=== PATIENT | male | born 1995 | race Caucasian/White ===

== ENCOUNTER → 2017-10-28 | Outpatient (CLI) | payer BC ==
--- NOTE | 2017-10-28 14:55 | Diagnostic Imaging Report ---
PROCEDURE: CT abdomen and pelvis without contrast. TECHNIQUE: Multiple contiguous axial images were obtained through the abdomen and pelvis without the use of intravenous contrast. INDICATION: Hematuria for three days. FINDINGS: The kidneys show no evidence of hydronephrosis. There are no renal calculi. Renal outlines are smooth. Ureters are not dilated. The bladder appears normal. Prostate is not enlarged. The lung bases are clear. The liver appears normal. The gallbladder and bile ducts are normal. The pancreas is normal. The spleen is normal. Adrenal glands are not enlarged. Bowel gas pattern appears normal throughout. There is normal stool and gas pattern. Appendix is normal. There is no free air or free fluid. IMPRESSION: Normal CT scan of the abdomen without contrast. Dictated by: Dictated on workstation # [id number]
== END ==
LOC: EDBD 11:15 → RAD 11:20
PROVIDERS: ATTEND Urology
DX: R31.9 Hematuria, unspecified (principal)
CPT/HCPCS: 74176